=== PATIENT | female | born 1935 | race Caucasian/White ===

== ENCOUNTER 2017-02-03 16:59 | Emergency (ER) | payer OTHER ==
[~2017-02-03] VITALS: Ht 157.5 cm; Wt 61.0 kg
[~2017-02-03 16:59] MED LIST: MECL12.584; METF10002; OMEP20CA10
[2017-02-03 18:26] LABS: HEMATOCRIT. 38.1 % (36.0-48.0); HEMOGLOBIN. 13.1 g/dL (12.0-16.0); MEAN CORPUSCULAR HEMOGLOBIN 30.4 pg (28.0-32.0); MEAN CORPUSCULAR VOLUME 88.3 fL (81.0-99.0); MEAN PLATELET VOLUME 10.1 fl (7.4-10.4); PLATELET 206 x1000/uL (130-400); RED BLOOD CELL COUNT 4.31 mill/uL (4.2-5.4); RED CELL DISTRIBUTION WIDTH 13.3 % (11.6-14.6)
[2017-02-03 18:29] LABS: CHLORIDE 100 mEq/L (98-107)
[2017-02-03 18:32] LABS: PARTIAL THROMBOPLASTIN TIME 24.5 sec (23.4-31.0); PROTHROMBIN TIME 10.6 sec (9.4-11.6)
[2017-02-03 18:37] LABS: CARBON DIOXIDE 25 mEq/L (21-32)
[2017-02-03 18:40] LABS: TROPONIN I < 0.02 ng/mL (0.00-0.04)
[2017-02-03 18:41] LABS: PLATELET ESTIMATE NORMAL
[2017-02-03] MEDS ORDERED: SODIUM CHLORIDE 0.9% 1000ML BAG (SEPSIS BOLUS) IV ONE (19:15)
[2017-02-03 19:24] LABS: CLARITY URINE CLEAR (CLEAR); COLOR URINE YELLOW (YELLOW); GLUCOSE URINE 3+ (NEGATIVE); KETONES URINE 1+ (NEGATIVE); LEUKOCYTE ESTERASE URINE NEGATIVE (NEGATIVE); NITRITE URINE NEGATIVE (NEGATIVE); OCCULT BLOOD URINE NEGATIVE (NEGATIVE); PH URINE 6.5 (4.5-8.0); PROTEIN URINE NEGATIVE (NEGATIVE); SPECIFIC GRAVITY URINE 1.026 (1.005-1.030); UROBILINOGEN URINE 0.2 E.U./dL (0.2-1.0)
[2017-02-03 21:30] VITALS: BP 150/75
== END 2017-02-03 22:38 | disposition home or self-care (01) ==
LOC: ER 17:05 → CANBEDREQ 22:42
DX: J06.9 Acute upper respiratory infection, unspecified (principal); E11.65 Type 2 diabetes mellitus with hyperglycemia; J38.3 Other diseases of vocal cords; E87.2 Acidosis; I10 Essential (primary) hypertension; E78.00 Pure hypercholesterolemia, unspecified; Z87.442 Personal history of urinary calculi
CPT/HCPCS: 36415; 71010; 80053; 81001; 83605; 83880; 84484; 85025; 85610; 85730; 87040; 87086; 93005; 96360; 96361; 99285; J7030

== ENCOUNTER 2017-02-11 16:43 | Emergency (ER) | payer OTHER ==
[~2017-02-11] VITALS: Ht 160 cm; Wt 68.0 kg
[2017-02-11] MEDS ORDERED: SODIUM CHLORIDE 0.9% 1,000 ML IV ONE (17:50)
[2017-02-11] MEDS ORDERED: ONDANSETRON HCL 4MG/2ML VIAL IV STA (17:50)
[2017-02-11] MEDS ORDERED: MORPHINE SULFATE 4 MG/ML CPJ (NOT FOR IM USE) IV STA (17:50)
[2017-02-11 18:31] LABS: BASOPHILS % 0.5 % (0.0-2.0); EOSINOPHILS % 0.8 % (0.0-5.0); HEMATOCRIT. 35.5 % (36.0-48.0); HEMOGLOBIN. 12.1 g/dL (12.0-16.0); MEAN CORPUSCULAR VOLUME 87.8 fL (81.0-99.0); MEAN PLATELET VOLUME 9.6 fl (7.4-10.4); MONOCYTES % 6.5 % (2.0-8.0); NEUTROPHILS % 79.2 % (40.0-76.0); PLATELET 202 x1000/uL (130-400); PROTHROMBIN TIME 10.7 sec (9.4-11.6); RED BLOOD CELL COUNT 4.04 mill/uL (4.2-5.4)
[2017-02-11 18:32] LABS: CHLORIDE 103 mEq/L (98-107)
[2017-02-11 18:38] LABS: CARBON DIOXIDE 26 mEq/L (21-32)
[2017-02-11 18:43] LABS: CLARITY URINE CLEAR (CLEAR); COLOR URINE DARK YELLOW (YELLOW); GLUCOSE URINE 2+ (NEGATIVE); KETONES URINE 1+ (NEGATIVE); LEUKOCYTE ESTERASE URINE TRACE (NEGATIVE); NITRITE URINE NEGATIVE (NEGATIVE); OCCULT BLOOD URINE 1+ (NEGATIVE); PROTEIN URINE 1+ (NEGATIVE); SPECIFIC GRAVITY URINE 1.028 (1.005-1.030)
[2017-02-11 19:38] VITALS: BP 124/72
== END 2017-02-11 20:06 | disposition home or self-care (01) ==
LOC: ER 17:13
DX: K52.9 Noninfective gastroenteritis and colitis, unspecified (principal); K57.90 Diverticulosis of intestine, part unspecified, without perforation or abscess without bleeding; I10 Essential (primary) hypertension; E78.00 Pure hypercholesterolemia, unspecified; E11.9 Type 2 diabetes mellitus without complications; Z79.84 Long term (current) use of oral hypoglycemic drugs; Z87.442 Personal history of urinary calculi
CPT/HCPCS: 36415; 74176; 80053; 81001; 83690; 85025; 85610; 96361; 96374; 96375; 99285; J2270; J2405; J7030

== ENCOUNTER 2017-08-09 17:31 | Emergency (ER) | payer OTHER ==
[~2017-08-09] VITALS: Ht 152.4 cm; Wt 70.0 kg
[2017-08-09] MEDS ORDERED: SODIUM CHLORIDE 0.9% 1,000 ML IV ONE (18:03)
[2017-08-09 18:44] LABS: CHLORIDE 106 mEq/L (98-107)
[2017-08-09 18:47] LABS: PARTIAL THROMBOPLASTIN TIME 24.4 sec (23.4-31.0); PROTHROMBIN TIME 10.8 sec (9.4-11.6)
[2017-08-09 18:48] LABS: BASOPHILS % 0.6 % (0.0-2.0); EOSINOPHILS % 1.3 % (0.0-5.0); HEMATOCRIT. 35.5 % (36.0-48.0); HEMOGLOBIN. 11.9 g/dL (12.0-16.0); LYMPHOCYTES % 30.7 % (20.0-50.0); MEAN CORPUSCULAR HEMOGLOBIN 29.9 pg (28.0-32.0); MEAN CORPUSCULAR VOLUME 88.9 fL (81.0-99.0); MEAN PLATELET VOLUME 9.2 fl (7.4-10.4); NEUTROPHILS % 60.4 % (40.0-76.0); PLATELET 210 x1000/uL (130-400); RED BLOOD CELL COUNT 3.99 mill/uL (4.2-5.4)
[2017-08-09 20:05] LABS: CLARITY URINE CLEAR (CLEAR); COLOR URINE YELLOW (YELLOW); KETONES URINE NEGATIVE (NEGATIVE); LEUKOCYTE ESTERASE URINE TRACE (NEGATIVE); NITRITE URINE NEGATIVE (NEGATIVE); OCCULT BLOOD URINE TRACE (NEGATIVE); PROTEIN URINE NEGATIVE (NEGATIVE); SPECIFIC GRAVITY URINE 1.016 (1.005-1.030); UROBILINOGEN URINE 0.2 E.U./dL (0.2-1.0)
[2017-08-09] MEDS ORDERED: IBUPROFEN 600MG TABLET PO ONE (20:30)
[2017-08-09 21:54] VITALS: BP 159/82
== END 2017-08-09 21:59 | disposition home or self-care (01) ==
LOC: ER 17:54
DX: R05 Cough (principal); J02.9 Acute pharyngitis, unspecified; E11.9 Type 2 diabetes mellitus without complications; E78.00 Pure hypercholesterolemia, unspecified; I10 Essential (primary) hypertension; Z87.442 Personal history of urinary calculi; Z79.84 Long term (current) use of oral hypoglycemic drugs; Z45.2 Encounter for adjustment and management of vascular access device
CPT/HCPCS: 36415; 71045; 80053; 81003; 83690; 83880; 84484; 85025; 85610; 85730; 87070; 87430; 87804; 93005; 99285; J7030

== ENCOUNTER 2024-11-27 17:42 | Emergency (ER) | payer BC, OTHER ==
[~2024-11-27] VITALS: Ht 160 cm; Wt 70.0 kg
[~2024-11-27 17:42] MED LIST changes: +MECL-217; -MECL12.584; +METF-416; -METF10002; -OMEP20CA10; +OMEP20CA14
[2024-11-27 17:49] VITALS: TEMP 37.1; O2SAT 98
[2024-11-27] MEDS ORDERED: CLONIDINE 0.2MG TABLET PO ONE (18:15)
[2024-11-27 18:40] LABS: BASOPHILS % 0.7 % (0.0-2.0); EOSINOPHILS % 1.5 % (0.0-5.0); HEMATOCRIT. 37.0 % (36.0-48.0); HEMOGLOBIN. 12.2 g/dL (12.0-16.0); LYMPHOCYTES % 19.9 % (20.0-50.0); MEAN PLATELET VOLUME 9.0 fl (7.4-10.4); MONOCYTES % 5.9 % (2.0-8.0); NEUTROPHILS % 72.0 % (40.0-76.0); PLATELET 222 x1000/uL (130-400); RED BLOOD CELL COUNT 4.08 mill/uL (4.2-5.4); RED CELL DISTRIBUTION WIDTH 13.4 % (11.6-14.6)
[2024-11-27] MEDS: SODIUM CHLORIDE 0.9% 1,000 ML IV ONE (18:40)
[2024-11-27] MEDS: ACETAMINOPHEN 325MG TABLET PO ONE (18:41)
[2024-11-27] MEDS: ONDANSETRON HCL 4MG/2ML INJ IV ONE (18:41)
[2024-11-27] MEDS: KETOROLAC 15MG/ML VIAL IV ONE (18:41)
[2024-11-27] MEDS: CLONIDINE 0.1MG TABLET PO NR (18:44)
[2024-11-27 18:52] LABS: CREATININE 0.8 mg/dL (0.6-1.0); UREA NITROGEN BLOOD 14 mg/dL (9-23)
[2024-11-27 18:54] LABS: ASPARTATE AMINOTRANSFERASE 12 IU/L (<34); BILIRUBIN DIRECT 0.1 mg/dL (<=3.0); BILIRUBIN TOTAL 0.3 mg/dL (0.1-1.0); PROTEIN TOTAL 7.1 g/dL (6.0-8.3); TROPONIN I HIGH SENSITIVITY < 4 ng/L (3.0-34)
[2024-11-27 21:04] VITALS: BP 150/63; PULSE 78; RESP 12; O2SAT 96
== END 2024-11-27 21:12 | disposition home or self-care (01) ==
LOC: ER 17:42
DX: R51.9 Headache, unspecified (principal); I10 Essential (primary) hypertension; E78.00 Pure hypercholesterolemia, unspecified; E11.9 Type 2 diabetes mellitus without complications; Z98.890 Other specified postprocedural states; Z79.899 Other long term (current) drug therapy
CPT/HCPCS: 99285; 96374; 70450; 71045; 96361; 96375; 80076; 80048; 83690; 85025; 84484; 36415; 93005; J1885; J2405; J7030

== ENCOUNTER 2025-01-03 16:27 | Emergency (ER) | payer BC ==
[~2025-01-03] VITALS: Ht 165.1 cm; Wt 68.0 kg
[2025-01-03 16:33] VITALS: O2SAT 99
[2025-01-03] MEDS: ACETAMINOPHEN 325MG TABLET PO ONE (18:00)
[2025-01-03 21:08] LABS: INFLUENZA TYPE A Presumptive Negative (Pres. Neg.); INFLUENZA TYPE B Presumptive Negative (Pres. Neg.)
[2025-01-03 21:09] LABS: RESPIRATORY SYNCYTIAL VIRUS Not Detected (Not Detectd)
[2025-01-03 21:41] VITALS: BP 191/80; PULSE 79; RESP 15; TEMP 36.9; O2SAT 99
== END 2025-01-03 21:42 | disposition home or self-care (01) ==
LOC: ER 16:27
DX: U07.1 COVID-19 (principal); E11.9 Type 2 diabetes mellitus without complications; E78.00 Pure hypercholesterolemia, unspecified; I10 Essential (primary) hypertension; J44.9 Chronic obstructive pulmonary disease, unspecified; Z87.442 Personal history of urinary calculi; Z90.710 Acquired absence of both cervix and uterus
CPT/HCPCS: 87070; 87420; 87426; 87430; 87804; 99283